=== PATIENT | male | born 1990 | race African-American/Black ===

== ENCOUNTER 2018-02-21 04:19 | Emergency (ER) | payer SELFPAY ==
--- NOTE | 2018-02-21 08:44 | RAD ---
2 VIEWS CHEST: Date: 02/21/18 PROVIDED CLINICAL HISTORY: Chest pain. FINDINGS: Comparison with 02/13/11. Cardiac and mediastinal silhouette is within normal limits. Lungs appear clear. No pleural fluid or p neumothorax apparent. IMPRESSION: No evidence for an acute cardiopulmonary process. POS: OFF
== END 2018-02-21 05:06 | disposition home or self-care (01) ==
LOC: ERS 04:19
DX: J45.901 Unspecified asthma with (acute) exacerbation (principal); F17.210 Nicotine dependence, cigarettes, uncomplicated; Z71.6 Tobacco abuse counseling; Z79.899 Other long term (current) drug therapy
CPT/HCPCS: 71046; 93005; 94760; 99406

== ENCOUNTER 2021-11-30 21:04 | Emergency (ER) | payer SELFPAY | END 2021-11-30 22:00 | disposition home or self-care (01) | LOC: ERS 21:04 | DX: B35.3 Tinea pedis (principal); F17.210 Nicotine dependence, cigarettes, uncomplicated ==

== ENCOUNTER 2022-02-08 15:14 | Emergency (ER) | payer SELFPAY | END 2022-02-08 16:15 | disposition home or self-care (01) | LOC: ERS 15:14 | DX: L01.00 Impetigo, unspecified (principal); J45.909 Unspecified asthma, uncomplicated; Z79.899 Other long term (current) drug therapy; F17.210 Nicotine dependence, cigarettes, uncomplicated | CPT/HCPCS: 99282 ==